=== PATIENT | female | born 1975 | race Caucasian/White ===

== ENCOUNTER → 2019-01-31 | Outpatient (CLI) | payer OTHER ==
[~2019-01-31] MED LIST: CIPRO500 M1 PO; FLOMAX0.4 MG PO; LEVSIN0.125 MG PO; LOSARTAN-HCTZ1 EAC1 PO; MOTION RELIEF25 MG; MULTIVITAMINS1 EAC7 PO; PERCOCET 5-3251 EACH PO; PHENAZOPYRIDIN200 M2 PO; PIOGLITAZONE15 MG PO; ZOFRAN ODT4 MG; ZOFRAN ODT4 MG PO; [UNRECOGNIZED DRUG - OTHER]
[2019-01-31 06:52] LABS: ABSOLUTE EOSINOPHILS 0.2 thou/uL (0.0-0.7); ABSOLUTE LYMPHOCYTES 2.5 thou/uL (0.8-5.3); ABSOLUTE MONOCYTES 0.7 thou/uL (0.0-1.2); ABSOLUTE NEUTROPHILS 5.4 thou/uL (1.6-8.1); BASOPHILS 0.5 %; HEMATOCRIT 41.8 % (37.0-47.0); HEMOGLOBIN 13.9 gm/dL (12.0-15.0); LYMPHOCYTES 28.8 %; MCH 28.8 pg (26.0-34.0); MCHC 33.4 g/dL (28.0-37.0); MCV 86.3 fL (80.0-100.0); MONOCYTES 7.7 %; MPV 8.9 fl. (7.2-11.1); NUCLEATED RBCS 0 /100WBC; PLATELET COUNT* 335 thou/uL (150-400); RBC 4.85 mil/uL (4.20-5.00); RDW-CV 13.5 % (10.5-14.5); WBC 8.8 thou/uL (4.0-11.0)
[2019-01-31 07:20] LABS: ALBUMIN 4.1 g/dL (3.4-5.0); ALKALINE PHOSPHATASE 75 U/L (46-116); ANION GAP 9 mmol/L (7-16); BUN 21 mg/dL (7-18); CALCIUM 9.3 mg/dL (8.5-10.1); CHLORIDE 103 mmol/L (98-107); CHOLESTEROL 148 mg/dL (<200); CO2 29 mmol/L (21-32); CREATININE 0.8 mg/dL (0.6-1.3); GLUCOSE 94 mg/dL (70-99); HDL CHOLESTEROL 35 mg/dL (>40); LDL CHOLESTEROL 93 mg/dL (<100); POTASSIUM 3.8 mmol/L (3.5-5.1); SERUM ASSESSMENT Clear; SGOT 20 U/L (15-37); SGPT 58 U/L (30-65); SODIUM 141 mmol/L (136-145); TC:HDL 4.2 Ratio (Not establshd); TOTAL BILIRUBIN 0.4 mg/dL (<0.1-1.0); TOTAL PROTEIN 8.2 g/dL (6.4-8.2); TRIGLYCERIDE 101 mg/dL (<150); VLDL 20 mg/dL (<40)
[2019-01-31 11:06] LABS: GLYCOHEMOGLOBIN (HGB A1C) 5.3 % (4.8-5.6)
== END ==
LOC: M.LAB 06:30
PROVIDERS: Family Medicine
DX: Z00.01 Encounter for general adult medical examination with abnormal findings (principal); I10 Essential (primary) hypertension; R53.83 Other fatigue; R73.09 Other abnormal glucose; Z68.41 Body mass index [BMI] 40.0-44.9, adult

== ENCOUNTER → 2019-04-25 | Outpatient (CLI) | payer OTHER | LOC: M.RAD 13:00 | DX: Z12.31 Encounter for screening mammogram for malignant neoplasm of breast (principal) ==

== ENCOUNTER → 2019-05-02 | Outpatient (CLI) | payer OTHER | LOC: M.RAD 15:16 → M.ULTRA 05-03 14:00 | DX: N63.11 Unspecified lump in the right breast, upper outer quadrant (principal); R92.0 Mammographic microcalcification found on diagnostic imaging of breast; N85.2 Hypertrophy of uterus ==